=== PATIENT | male | born 1970 | race Caucasian/White ===

== ENCOUNTER → 2016-10-28 | Outpatient (CLI) | payer BC ==
--- NOTE | 2016-10-28 18:10 | MRI ---
Indication: Left shoulder pain. Exam: MRI left shoulder without contrast. Technique: Routine multiplanar multisequence imaging was performed through the left shoulder without contrast . Findings: The glenohumeral joint is intact. No fracture or subluxation is seen. There is moderate th ickening and increased signal throughout the supraspinatus tendon extending to the insertion site . There is slight irregularity along the inferior articular surface of the tendon with no fluid signal or retraction seen in the tendon. There is a small amount of fluid in the subacromial and subdeltoi d bursa. There are hypertrophic changes of the AC joint with prominent hooking and downsloping of th e acromion causing moderate narrowing of the acromiohumeral space. There are small subchondral cysti c or erosive changes along the greater tuberosity with mild reactive edema in the area. The labrum a ppears intact and normal signal intensity. The biceps tendon is intact and in good position. There i s a small joint effusion. Impression: Moderate supraspinatus tendinopathy with questionable mild fraying or minimal partial tear along the inferior articular surface of the tendon. Mild subacromial and subdeltoid bursitis. Hypertrophic changes of the AC joint and prominent downsloping of the acromion causing moderate narr owing of the acromiohumeral space. Small joint effusion. Prominent subchondral cystic or erosive changes along the greater tuberosity with some mild reactive edema in the area. Reported By:
== END ==
LOC: RAD 15:56
PROVIDERS: ATTEND Internal Medicine
DX: M25.512 Pain in left shoulder (principal); M25.412 Effusion, left shoulder
CPT/HCPCS: 73221